=== PATIENT | male | born 1940 ===

== ENCOUNTER → 2023-08-17 06:27 | Day surgery (SDC) | payer MEDICARE, SELFPAY | LOC: GI 06:27 | PROVIDERS: ATTENDING PHYSICIAN Internal Medicine Gastroenterology | DX: Z12.11 Encounter for screening for malignant neoplasm of colon (principal); D12.3 Benign neoplasm of transverse colon; K64.8 Other hemorrhoids; Z85.038 Personal history of other malignant neoplasm of large intestine; Z98.0 Intestinal bypass and anastomosis status | CPT/HCPCS: 45385; 88305 ==